=== PATIENT | female | born 2000 | race Caucasian/White ===

== ENCOUNTER 2019-07-02 20:29 | Emergency (ER) | payer OTHER ==
[~2019-07-02] VITALS: Ht 165.1 cm; Wt 72.6 kg
[~2019-07-02 20:29] MED LIST: ADDERALL XR20 MG PO; AMBIEN5 MG PO; AMOXICILLIN500 MG PO; AMOXIL250 M1 PO; BACTRIM DS 8001 TAB PO; BIRTH CONTROL1 EAC1 PO; CEPHALEXIN500 M1 PO; CLARITIN5 MG/5 ML PO; CYCLOBENZAPRINE10 MG PO; Catapres-Tts 10.1 MG PO; IBUPROFEN600 MG PO; KEFLEX500 MG PO; LIDEX0.05% T; MOTRIN100 MG/5 M PO; MOTRIN400 MG PO; MOTRIN600 MG PO; PHENERGAN W/DM120 ML PO; PRELONE5 MG/5 ML PO; REMERON15 MG PO; ROBITUSSIN DM120 ML PO; SUDAFED30 MG PO; TYLENOL W/CODE480 ML PO; VALTREX1 GM PO; VYVANSE50 MG PO; ZITHROMAX Z PA250 MG PO
[2019-07-02 20:36] VITALS: BP 137/80
[2019-07-02 21:46] LABS: BILIRUBIN NEGATIVE (NEGATIVE); BLOOD NEGATIVE (NEGATIVE); CLARITY CLEAR (CLEAR); COLOR YELLOW (YELLOW); GLUCOSE NEGATIVE (NEGATIVE); KETONE NEGATIVE (NEGATIVE); LEUKO ESTERASE NEGATIVE (NEGATIVE); NITRITE NEGATIVE (NEGATIVE); SPECIFIC GRAVITY 1.015 (1.005-1.030); UROBILINOGEN 0.2 E.U./dl (0.2-1.0)
[2019-07-02 21:52] LABS: BACTERIA 1+; EPITHELIAL CELLS TNTC; MUCOUS 1+
[2019-07-02] MEDS ORDERED: MIRALAX119 GM PO (22:37)
[2019-07-02] MEDS ORDERED: AMOXICILLIN500 M2 PO (22:47)
== END 2019-07-02 23:28 | disposition home or self-care (01) ==
LOC: ED 20:29
PROVIDERS: Emergency Medicine Emergency Medical Services
DX: O26.891 Other specified pregnancy related conditions, first trimester (principal); K59.00 Constipation, unspecified; R82.71 Bacteriuria; F32.9 Major depressive disorder, single episode, unspecified; Z3A.01 Less than 8 weeks gestation of pregnancy

== ENCOUNTER 2019-08-03 10:42 | Emergency (ER) | payer OTHER ==
[~2019-08-03] VITALS: Ht 165.1 cm; Wt 72.6 kg
[~2019-08-03 10:42] MED LIST changes: +AMOXICILLIN500 M2 PO; +MIRALAX119 GM PO
[2019-08-03 10:48] VITALS: BP 118/58
[2019-08-03] MEDS ORDERED: AMOXICILLIN500 M3 PO (11:29)
== END 2019-08-03 11:35 | disposition home or self-care (01) ==
LOC: ED 10:42
DX: O99.611 Diseases of the digestive system complicating pregnancy, first trimester (principal); K04.7 Periapical abscess without sinus; Z3A.12 12 weeks gestation of pregnancy

== ENCOUNTER → 2019-08-10 | Outpatient (CLI) | payer OTHER ==
[~2019-08-10] MED LIST changes: +AMOXICILLIN500 M3 PO
== END | disposition home or self-care (01) ==
LOC: US 01:41
DX: Z34.91 Encounter for supervision of normal pregnancy, unspecified, first trimester (principal); Z3A.11 11 weeks gestation of pregnancy

== ENCOUNTER → 2019-10-05 | Outpatient (CLI) | payer OTHER | END | disposition home or self-care (01) | LOC: US 14:00 | DX: Z34.02 Encounter for supervision of normal first pregnancy, second trimester (principal); Z3A.19 19 weeks gestation of pregnancy; D64.9 Anemia, unspecified ==

== ENCOUNTER → 2020-01-02 | Outpatient (CLI) | payer OTHER | END | disposition home or self-care (01) | LOC: US 11:00 | PROVIDERS: ATTEND Nurse Practitioner Women's Health | DX: Z34.03 Encounter for supervision of normal first pregnancy, third trimester (principal); Z3A.32 32 weeks gestation of pregnancy ==

== ENCOUNTER → 2020-02-14 | Outpatient (CLI) | payer OTHER | END | disposition home or self-care (01) | LOC: US 13:34 | PROVIDERS: ATTEND Obstetrics & Gynecology | DX: Z34.03 Encounter for supervision of normal first pregnancy, third trimester (principal); Z3A.38 38 weeks gestation of pregnancy ==

== ENCOUNTER 2020-08-20 01:47 | Emergency (ER) | payer OTHER ==
[~2020-08-20] VITALS: Ht 160 cm; Wt 72.6 kg
[2020-08-20 01:56] VITALS: BP 145/94
[2020-08-20] MEDS ORDERED: ESTARYLLA 0.251 EACH PO (01:56)
[2020-08-20] MEDS ORDERED: NAPROSYN500 MG PO (02:57)
== END 2020-08-20 03:08 | disposition home or self-care (01) ==
LOC: ED 01:47
DX: M94.0 Chondrocostal junction syndrome [Tietze] (principal); Z79.899 Other long term (current) drug therapy

== ENCOUNTER 2020-09-16 00:41 | Emergency (ER) | payer OTHER ==
[~2020-09-16] VITALS: Ht 162.5 cm; Wt 68.0 kg
[~2020-09-16 00:41] MED LIST changes: +ESTARYLLA 0.251 EACH PO; +NAPROSYN500 MG PO
[2020-09-16 01:04] VITALS: BP 104/75
== END 2020-09-16 03:29 | disposition left against medical advice (07) ==
LOC: ED 00:41
DX: Z00.00 Encounter for general adult medical examination without abnormal findings (principal); Z79.899 Other long term (current) drug therapy

== ENCOUNTER → 2020-09-24 | Outpatient (CLI) | payer OTHER ==
[2020-09-24 14:42] LABS: HEMATOCRIT 39.9 % (37.0-47.0); MEAN CELL VOLUME 91.3 fl (81.0-99.0); MEAN CORPUSCULAR HGB 30.2 pg (27.0-31.0); MEAN CORPUSCULAR HGB CONC 33.1 g/dl (33.0-37.0); MEAN PLATELET VOLUME 10.1 fl (9.6-12.3); PLATELET COUNT AUTOMATED 282 10*3/uL (130-400); RED BLOOD COUNT 4.37 10*6/uL (4.10-5.10); RETICULOCYTE % 1.67 % (0.50-2.50); WHITE BLOOD COUNT 6.8 10*3/uL (4.8-10.8)
[2020-09-24 14:48] LABS: BILIRUBIN Negative (Negative); BLOOD 2+ (Negative); CLARITY Clear (Clear); COLOR Yellow (Yellow); GLUCOSE Negative (Negative); KETONE Negative (Negative); LEUKO ESTERASE 2+ (Negative); NITRITE Negative (Negative); SPECIFIC GRAVITY 1.015 (1.001-1.030)
[2020-09-24 15:00] LABS: BACTERIA 3+; EPITHELIAL CELLS 16-20
[2020-09-24 15:14] LABS: ALBUMIN 3.9 gm/dl (3.1-4.5); ALKALINE PHOSPHATASE 42 U/L (45-117); BUN 13 mg/dl (7-24); CHLORIDE 108 mmol/L (98-107); CHOLESTEROL 152 mg/dL (<200); CREATININE 0.81 mg/dL (0.55-1.02); IRON 80 ug/dL (50-170); LDL CHOLESTEROL 81 mg/dL (9-159); POTASSIUM 3.8 mmol/L (3.5-5.1); SGOT/AST 9 IU/L (3-35); SGPT/ALT 21 U/L (12-78); SODIUM 137 mmol/L (136-145); TOTAL IRON BINDING CAPACITY 446 ug/dl (250-450); TOTAL PROTEIN 7.5 gm/dL (6.4-8.2); TRIGLYCERIDES 103 mg/dl (<150); URIC ACID 3.5 mg/dL (2.6-6.0)
[2020-09-24 15:15] LABS: ATYPICAL LYMPHS 1 % (0-0); BASOPHILS 1 % (0-1); PLATELET SUFFICIENCY NORMAL (NORMAL); TOTAL CELLS COUNTED 100 #CELLS
[2020-09-24 15:21] LABS: FERRITIN 16.5 ng/mL (10.0-291.0); VITAMIN D, 25-HYDROXY 21.5 ng/mL (30-100)
[2020-09-24 15:33] LABS: GAMMA GLUTAMYL TRANSPEPTIDASE < 3 U/L (5-55)
[2020-09-25 05:06] LABS: RHEUMATOID ARTHRITIS FACTOR <10.0 IU/mL (0.0-13.9); TOTAL PROTEIN, SERUM 6.9 g/dL (6.0-8.5)
[2020-09-25 16:08] LABS: A/G RATIO 1.6 (0.7-1.7); ALBUMIN 4.2 g/dL (2.9-4.4); ALPHA-1-GLOBULIN 0.2 g/dL (0.0-0.4); ALPHA-2-GLOBULIN 0.7 g/dL (0.4-1.0); ANTI-DSDNA ANTIBODIES 1 IU/mL (0-9); GAMMA GLOBULIN 0.8 g/dL (0.4-1.8); GLOBULIN, TOTAL 2.7 g/dL (2.2-3.9); M-SPIKE Not Observed g/dL (Not Observed)
== END | disposition home or self-care (01) ==
LOC: LAB 14:08
PROVIDERS: ATTEND Family Medicine
DX: E78.5 Hyperlipidemia, unspecified (principal); R53.83 Other fatigue; R79.89 Other specified abnormal findings of blood chemistry; E55.9 Vitamin D deficiency, unspecified

== ENCOUNTER 2020-10-01 20:10 | Emergency (ER) | payer OTHER ==
[~2020-10-01] VITALS: Ht 160 cm; Wt 73.5 kg
[2020-10-01 20:43] VITALS: BP 121/77
[2020-10-01] MEDS ORDERED: AUGMENTIN 875875 MG PO (21:52)
[2020-10-01] MEDS ORDERED: FLONASE ALLERG9.9 ML NAS (21:52)
== END 2020-10-01 22:01 | disposition home or self-care (01) ==
LOC: ED 20:10
DX: J32.9 Chronic sinusitis, unspecified (principal); F17.200 Nicotine dependence, unspecified, uncomplicated; Z79.899 Other long term (current) drug therapy

== ENCOUNTER → 2020-12-14 | Outpatient (CLI) | payer OTHER ==
[~2020-12-14] MED LIST changes: +AUGMENTIN 875875 MG PO; +FLONASE ALLERG9.9 ML NAS
[2020-12-14 10:35] LABS: BASO % 0.7 % (0.0-1.0); EOS # 0.1 10*3/uL (0.0-0.4); EOS % 1.3 % (1.0-4.0); HEMATOCRIT 42.7 % (37.0-47.0); LYMPH # 2.2 10*3/uL (1.3-4.4); LYMPH % 39.6 % (27.0-41.0); MEAN CELL VOLUME 93.8 fl (81.0-99.0); MEAN CORPUSCULAR HGB 30.1 pg (27.0-31.0); MEAN CORPUSCULAR HGB CONC 32.1 g/dl (33.0-37.0); MONO # 0.3 10*3/uL (0.1-1.0); MONO % 5.9 % (3.0-9.0); NEUT # 2.9 10*3/uL (2.3-7.9); NEUT % 52.5 % (47.0-73.0); PLATELET COUNT AUTOMATED 263 10*3/uL (130-400); RED BLOOD COUNT 4.55 10*6/uL (4.10-5.10); RED CELL DISTRI WIDTH 12.1 % (0-14.5); RETICULOCYTE % 1.63 % (0.50-2.50); WHITE BLOOD COUNT 5.5 10*3/uL (4.8-10.8)
[2020-12-14 11:05] LABS: BUN 8 mg/dl (7-24); CHLORIDE 108 mmol/L (98-107); CHOLESTEROL 165 mg/dL (<200); GAMMA GLUTAMYL TRANSPEPTIDASE 9 U/L (5-55); IRON 124 ug/dL (50-170); SODIUM 138 mmol/L (136-145)
[2020-12-14 11:15] LABS: ALKALINE PHOSPHATASE 41 U/L (45-117); LDL CHOLESTEROL 91 mg/dL (9-159); SGOT/AST 13 IU/L (3-35); SGPT/ALT 19 U/L (12-78); TOTAL IRON BINDING CAPACITY 455 ug/dl (250-450); TOTAL PROTEIN 7.9 gm/dL (6.4-8.2); TRIGLYCERIDES 121 mg/dl (<150)
[2020-12-14 11:22] LABS: BETA-HCG, QUANT < 1.0 mIU/mL (1-3)
[2020-12-14 11:36] LABS: BILIRUBIN Negative (Negative); BLOOD Trace-Lysed (Negative); CLARITY Clear (Clear); COLOR Yellow (Yellow); GLUCOSE Negative (Negative); KETONE Negative (Negative); LEUKO ESTERASE Negative (Negative); NITRITE Negative (Negative); UROBILINOGEN 0.2 E.U./dl (0.0-1.0)
[2020-12-14 13:19] LABS: EPITHELIAL CELLS 0-2; RBC 0-2 rbc/hpf (0-2); WBC 0-2 wbc/hpf (0-5)
[2020-12-15 07:06] LABS: H PYLORI IGG AB 0.19 (0.00-0.79)
[2020-12-17 14:07] LABS: H.PYLORI IGM <9.0 units (0.0-8.9)
[2020-12-17 16:07] LABS: H.PYLORI IgA <9.0 units (0.0-8.9)
== END | disposition home or self-care (01) ==
LOC: LAB 09:08 → US 09:08
PROVIDERS: ATTEND Family Medicine
DX: K80.20 Calculus of gallbladder without cholecystitis without obstruction (principal); N83.292 Other ovarian cyst, left side

== ENCOUNTER 2021-01-07 18:13 | Emergency (ER) | payer OTHER ==
[~2021-01-07] VITALS: Ht 157.4 cm; Wt 70.3 kg
[2021-01-07 18:35] VITALS: BP 122/71
[2021-01-07 19:57] LABS: BASO % 0.5 % (0.0-1.0); EOS # 0.1 10*3/uL (0.0-0.4); EOS % 1.5 % (1.0-4.0); HEMATOCRIT 38.7 % (37.0-47.0); LYMPH % 48.9 % (27.0-41.0); MEAN CELL VOLUME 91.7 fl (81.0-99.0); MEAN CORPUSCULAR HGB 29.6 pg (27.0-31.0); MEAN CORPUSCULAR HGB CONC 32.3 g/dl (33.0-37.0); MEAN PLATELET VOLUME 9.6 fl (9.6-12.3); MONO # 0.5 10*3/uL (0.1-1.0); MONO % 7.3 % (3.0-9.0); NEUT # 2.6 10*3/uL (2.3-7.9); NEUT % 41.6 % (47.0-73.0); PLATELET COUNT AUTOMATED 269 10*3/uL (130-400); RED BLOOD COUNT 4.22 10*6/uL (4.10-5.10); RED CELL DISTRI WIDTH 11.9 % (0-14.5); WHITE BLOOD COUNT 6.2 10*3/uL (4.8-10.8)
[2021-01-07 20:14] LABS: BILIRUBIN Negative (Negative); BLOOD 3+ (Negative); CLARITY Clear (Clear); COLOR Yellow (Yellow); GLUCOSE Negative (Negative); KETONE Negative (Negative); LEUKO ESTERASE Negative (Negative); NITRITE Negative (Negative); PH 7.5 (4.5-8.0); SPECIFIC GRAVITY <= 1.005 (1.001-1.030); UROBILINOGEN 0.2 E.U./dl (0.0-1.0)
[2021-01-07 20:17] LABS: ALBUMIN 3.7 gm/dl (3.1-4.5); ALKALINE PHOSPHATASE 40 U/L (45-117); BUN 8 mg/dl (7-24); CHLORIDE 110 mmol/L (98-107); CREATININE 0.74 mg/dL (0.55-1.02); POTASSIUM 3.8 mmol/L (3.5-5.1); SGOT/AST 13 IU/L (3-35); SGPT/ALT 23 U/L (12-78); SODIUM 141 mmol/L (136-145); TOTAL PROTEIN 7.2 gm/dL (6.4-8.2)
[2021-01-07 20:21] LABS: TROPONIN I < 0.015 ng/ml (<0.045)
[2021-01-07 20:34] LABS: RBC 16-20 rbc/hpf (0-2)
[2021-01-07 20:35] LABS: EPITHELIAL CELLS 0-2
== END 2021-01-08 00:45 | disposition home or self-care (01) ==
LOC: ED 18:13
PROVIDERS: Emergency Medicine
DX: I45.6 Pre-excitation syndrome (principal); F17.200 Nicotine dependence, unspecified, uncomplicated; Z79.899 Other long term (current) drug therapy

== ENCOUNTER 2021-01-20 17:40 | Emergency (ER) | payer OTHER ==
[~2021-01-20] VITALS: Ht 157.4 cm; Wt 68.0 kg
[2021-01-20 17:47] VITALS: BP 153/100
[2021-01-20 18:51] LABS: BASO # 0.1 10*3/uL (0.0-0.1); BASO % 0.9 % (0.0-1.0); EOS # 0.1 10*3/uL (0.0-0.4); EOS % 1.1 % (1.0-4.0); HEMATOCRIT 41.9 % (37.0-47.0); LYMPH # 2.2 10*3/uL (1.3-4.4); LYMPH % 33.6 % (27.0-41.0); MEAN CELL VOLUME 89.3 fl (81.0-99.0); MEAN CORPUSCULAR HGB 30.1 pg (27.0-31.0); MEAN CORPUSCULAR HGB CONC 33.7 g/dl (33.0-37.0); MEAN PLATELET VOLUME 10.1 fl (9.6-12.3); MONO # 0.4 10*3/uL (0.1-1.0); MONO % 5.8 % (3.0-9.0); NEUT # 3.8 10*3/uL (2.3-7.9); NEUT % 58.4 % (47.0-73.0); PLATELET COUNT AUTOMATED 271 10*3/uL (130-400); RED BLOOD COUNT 4.69 10*6/uL (4.10-5.10); RED CELL DISTRI WIDTH 11.6 % (0-14.5); WHITE BLOOD COUNT 6.4 10*3/uL (4.8-10.8)
[2021-01-20 19:09] LABS: ALBUMIN 4.1 gm/dl (3.1-4.5); ALKALINE PHOSPHATASE 48 U/L (45-117); BUN 13 mg/dl (7-24); CHLORIDE 109 mmol/L (98-107); CREATININE 0.83 mg/dL (0.55-1.02); POTASSIUM 4.2 mmol/L (3.5-5.1); SGPT/ALT 22 U/L (12-78); SODIUM 139 mmol/L (136-145); TOTAL PROTEIN 7.7 gm/dL (6.4-8.2)
[2021-01-20 19:16] LABS: TROPONIN I < 0.015 ng/ml (<0.045)
[2021-01-20 19:17] LABS: SGOT/AST 21 IU/L (3-35)
== END 2021-01-20 19:46 | disposition home or self-care (01) ==
LOC: ED 17:40
PROVIDERS: Physician Assistant
DX: R00.2 Palpitations (principal)

== ENCOUNTER 2021-03-17 19:01 | Emergency (ER) | payer OTHER ==
[~2021-03-17] VITALS: Ht 157.4 cm; Wt 68.0 kg
[2021-03-17 19:13] VITALS: BP 132/77
== END 2021-03-17 22:41 | disposition left against medical advice (07) ==
LOC: ED 19:01
DX: Z53.21 Procedure and treatment not carried out due to patient leaving prior to being seen by health care provider (principal)

== ENCOUNTER 2021-03-22 01:52 | Emergency (ER) | payer OTHER ==
[~2021-03-22] VITALS: Ht 157.4 cm; Wt 72.6 kg
[2021-03-22 02:00] VITALS: BP 152/84
[2021-03-22 03:37] LABS: BASO % 0.2 % (0.0-1.0); HEMATOCRIT 37.5 % (37.0-47.0); LYMPH # 1.7 10*3/uL (1.3-4.4); LYMPH % 39.5 % (27.0-41.0); MEAN CELL VOLUME 91.5 fl (81.0-99.0); MEAN CORPUSCULAR HGB 30.5 pg (27.0-31.0); MEAN CORPUSCULAR HGB CONC 33.3 g/dl (33.0-37.0); MEAN PLATELET VOLUME 10.1 fl (9.6-12.3); MONO # 0.5 10*3/uL (0.1-1.0); MONO % 11.3 % (3.0-9.0); NEUT # 2.1 10*3/uL (2.3-7.9); PLATELET COUNT AUTOMATED 232 10*3/uL (130-400); WHITE BLOOD COUNT 4.3 10*3/uL (4.8-10.8)
[2021-03-22 03:50] LABS: BUN 15 mg/dl (7-24); CHLORIDE 108 mmol/L (98-107); CREATININE 0.82 mg/dL (0.55-1.02); POTASSIUM 4.3 mmol/L (3.5-5.1); SODIUM 139 mmol/L (136-145)
== END 2021-03-22 05:18 | disposition home or self-care (01) ==
LOC: ED 01:52
PROVIDERS: Emergency Medicine
DX: R07.89 Other chest pain (principal); M79.602 Pain in left arm; Z79.899 Other long term (current) drug therapy; Z79.2 Long term (current) use of antibiotics; Z96.22 Myringotomy tube(s) status

== ENCOUNTER 2021-04-07 16:30 | Emergency (ER) | payer OTHER ==
[~2021-04-07] VITALS: Wt 72.6 kg
[2021-04-07 17:08] LABS: BASO % 0.9 % (0.0-1.0); EOS # 0.1 10*3/uL (0.0-0.4); EOS % 1.4 % (1.0-4.0); HEMATOCRIT 38.9 % (37.0-47.0); LYMPH % 47.2 % (27.0-41.0); MEAN CELL VOLUME 92.2 fl (81.0-99.0); MEAN CORPUSCULAR HGB 30.6 pg (27.0-31.0); MEAN CORPUSCULAR HGB CONC 33.2 g/dl (33.0-37.0); MEAN PLATELET VOLUME 9.6 fl (9.6-12.3); MONO # 0.3 10*3/uL (0.1-1.0); MONO % 6.1 % (3.0-9.0); NEUT # 1.9 10*3/uL (2.3-7.9); NEUT % 44.2 % (47.0-73.0); PLATELET COUNT AUTOMATED 275 10*3/uL (130-400); RED BLOOD COUNT 4.22 10*6/uL (4.10-5.10); WHITE BLOOD COUNT 4.2 10*3/uL (4.8-10.8)
[2021-04-07 17:20] LABS: ACT PARTIAL THROMBO TIME 27.5 SECONDS (20.0-32.1)
[2021-04-07 17:28] LABS: ALBUMIN 3.9 gm/dl (3.1-4.5); ALKALINE PHOSPHATASE 52 U/L (45-117); BUN 13 mg/dl (7-24); CHLORIDE 109 mmol/L (98-107); CREATININE 0.82 mg/dL (0.55-1.02); LIPASE 227 U/L (73-393); SGOT/AST 11 IU/L (3-35); SGPT/ALT 21 U/L (12-78); SODIUM 139 mmol/L (136-145); TOTAL PROTEIN 7.5 gm/dL (6.4-8.2)
[2021-04-07 18:16] LABS: BILIRUBIN Negative (Negative); BLOOD 3+ (Negative); CLARITY Clear (Clear); COLOR Yellow (Yellow); GLUCOSE Negative (Negative); KETONE Negative (Negative); LEUKO ESTERASE 1+ (Negative); NITRITE Negative (Negative); PH 5.5 (4.5-8.0); UROBILINOGEN 0.2 E.U./dl (0.0-1.0)
[2021-04-07 18:48] LABS: BACTERIA TRACE; EPITHELIAL CELLS 16-20; RBC 0-2 rbc/hpf (0-2); YEAST TRACE
[2021-04-07 19:00] VITALS: BP 124/70
[2021-04-07] MEDS ORDERED: IBUPROFEN600 MG PO (20:29)
== END 2021-04-07 20:39 | disposition home or self-care (01) ==
LOC: ED 16:30
PROVIDERS: Physician Assistant
DX: R09.1 Pleurisy (principal); Z79.899 Other long term (current) drug therapy

== ENCOUNTER → 2021-12-12 | Outpatient (CLI) | payer OTHER ==
[2021-12-12 16:28] LABS: BASO # 0.1 10*3/uL (0.0-0.1); BASO % 0.9 % (0.0-1.0); EOS # 0.1 10*3/uL (0.0-0.4); EOS % 1.7 % (1.0-4.0); HEMATOCRIT 37.3 % (37.0-47.0); LYMPH # 2.2 10*3/uL (1.3-4.4); LYMPH % 37.6 % (27.0-41.0); MEAN CORPUSCULAR HGB 31.5 pg (27.0-31.0); MEAN CORPUSCULAR HGB CONC 33.5 g/dl (33.0-37.0); MEAN PLATELET VOLUME 9.5 fl (9.6-12.3); MONO # 0.4 10*3/uL (0.1-1.0); MONO % 6.3 % (3.0-9.0); NEUT # 3.1 10*3/uL (2.3-7.9); NEUT % 53.2 % (47.0-73.0); PLATELET COUNT AUTOMATED 254 10*3/uL (130-400); RED BLOOD COUNT 3.97 10*6/uL (4.10-5.10); RETICULOCYTE % 1.75 % (0.50-2.50); WHITE BLOOD COUNT 5.9 10*3/uL (4.8-10.8)
[2021-12-12 16:29] LABS: BILIRUBIN Negative (Negative); BLOOD Negative (Negative); CLARITY Cloudy (Clear); COLOR Yellow (Yellow); GLUCOSE Negative (Negative); KETONE Negative (Negative); LEUKO ESTERASE Trace (Negative); NITRITE Negative (Negative); PH 6.5 (4.5-8.0); UROBILINOGEN 0.2 E.U./dl (0.0-1.0)
[2021-12-12 16:41] LABS: BACTERIA 1+; MUCOUS 1+; RBC 0-2 rbc/hpf (0-2)
[2021-12-12 17:00] LABS: ALKALINE PHOSPHATASE 48 U/L (45-117); BUN 8 mg/dl (7-24); CHLORIDE 108 mmol/L (98-107); CHOLESTEROL 132 mg/dL (<200); CREATININE 0.64 mg/dL (0.55-1.02); GAMMA GLUTAMYL TRANSPEPTIDASE 10 U/L (5-55); IRON 108 ug/dL (50-170); LDL CHOLESTEROL 65 mg/dL (9-159); POTASSIUM 3.9 mmol/L (3.5-5.1); SGOT/AST 11 IU/L (3-35); SGPT/ALT 19 U/L (12-78); SODIUM 138 mmol/L (136-145); T3 UPTAKE 34 % (31-39); THYROXINE (T4) TOTAL 7.5 ug/dl (4.8-13.9); TOTAL PROTEIN 7.5 gm/dL (6.4-8.2); TRIGLYCERIDES 65 mg/dl (<150); URIC ACID 2.9 mg/dL (2.6-6.0)
[2021-12-12 17:18] LABS: FERRITIN 22.1 ng/mL (10.0-291.0); VITAMIN D, 25-HYDROXY 11.6 ng/mL (30-100)
[2021-12-13 08:08] LABS: RHEUMATOID FACTOR <10.0 IU/mL (<14.0)
[2021-12-13 16:08] LABS: ANTI-DSDNA ANTIBODIES <1 IU/mL (0-9)
== END | disposition home or self-care (01) ==
LOC: LAB 15:55
PROVIDERS: ATTEND Family Medicine
DX: R53.83 Other fatigue (principal); E78.5 Hyperlipidemia, unspecified; R79.89 Other specified abnormal findings of blood chemistry; E55.9 Vitamin D deficiency, unspecified

== ENCOUNTER 2022-01-10 13:26 | Emergency (ER) | payer OTHER ==
[~2022-01-10] VITALS: Ht 160 cm; Wt 74.8 kg
[2022-01-10 13:39] VITALS: BP 133/65
[2022-01-10 16:18] LABS: BASO % 0.4 % (0.0-1.0); EOS % 0.4 % (1.0-4.0); HEMATOCRIT 34.8 % (37.0-47.0); LYMPH % 13.7 % (27.0-41.0); MEAN CELL VOLUME 92.3 fl (81.0-99.0); MEAN CORPUSCULAR HGB 30.8 pg (27.0-31.0); MEAN CORPUSCULAR HGB CONC 33.3 g/dl (33.0-37.0); MEAN PLATELET VOLUME 9.3 fl (9.6-12.3); MONO # 0.4 10*3/uL (0.1-1.0); MONO % 5.5 % (3.0-9.0); NEUT # 5.9 10*3/uL (2.3-7.9); NEUT % 79.9 % (47.0-73.0); PLATELET COUNT AUTOMATED 254 10*3/uL (130-400); RED BLOOD COUNT 3.77 10*6/uL (4.10-5.10); RED CELL DISTRI WIDTH 11.6 % (0-14.5); WHITE BLOOD COUNT 7.4 10*3/uL (4.8-10.8)
[2022-01-10 16:33] LABS: ALKALINE PHOSPHATASE 51 U/L (45-117); BUN 6 mg/dl (7-24); CHLORIDE 107 mmol/L (98-107); CREATININE 0.52 mg/dL (0.55-1.02); POTASSIUM 3.5 mmol/L (3.5-5.1); SGOT/AST 10 IU/L (3-35); SGPT/ALT 16 U/L (12-78); SODIUM 138 mmol/L (136-145); TOTAL PROTEIN 7.4 gm/dL (6.4-8.2)
[2022-01-10 17:10] LABS: BILIRUBIN Negative (Negative); BLOOD Negative (Negative); CLARITY Cloudy (Clear); COLOR Yellow (Yellow); GLUCOSE Negative (Negative); KETONE Trace (Negative); LEUKO ESTERASE 2+ (Negative); NITRITE Negative (Negative); SPECIFIC GRAVITY 1.015 (1.001-1.030); UROBILINOGEN 0.2 E.U./dl (0.0-1.0)
[2022-01-10 17:22] LABS: BACTERIA 2+; EPITHELIAL CELLS TNTC
[2022-01-10] MEDS ORDERED: TYLENOL325 M1 PO (17:35)
[2022-01-10] MEDS ORDERED: CEPHALEXIN500 M1 PO (17:35)
== END 2022-01-10 17:40 | disposition home or self-care (01) ==
LOC: ED 13:26
PROVIDERS: Physician Assistant
DX: O23.91 Unspecified genitourinary tract infection in pregnancy, first trimester (principal); O26.891 Other specified pregnancy related conditions, first trimester; R51.9 Headache, unspecified; Z3A.10 10 weeks gestation of pregnancy; Z79.899 Other long term (current) drug therapy

== ENCOUNTER → 2022-02-07 | Outpatient (CLI) | payer OTHER ==
[~2022-02-07] MED LIST changes: +TYLENOL325 M1 PO
== END ==
LOC: US 10:00
PROVIDERS: ATTEND Obstetrics & Gynecology
DX: Z34.80 Encounter for supervision of other normal pregnancy, unspecified trimester (principal); Z3A.14 14 weeks gestation of pregnancy

== ENCOUNTER → 2022-05-23 | Outpatient (CLI) | payer OTHER ==
[2022-05-23 08:57] LABS: BASO # 0.1 10*3/uL (0.0-0.1); BASO % 0.5 % (0.0-1.0); EOS # 0.1 10*3/uL (0.0-0.4); EOS % 1.3 % (1.0-4.0); HEMATOCRIT 31.2 % (37.0-47.0); LYMPH # 2.7 10*3/uL (1.3-4.4); LYMPH % 29.4 % (27.0-41.0); MEAN CELL VOLUME 91.5 fl (81.0-99.0); MEAN CORPUSCULAR HGB 30.8 pg (27.0-31.0); MEAN CORPUSCULAR HGB CONC 33.7 g/dl (33.0-37.0); MEAN PLATELET VOLUME 9.5 fl (9.6-12.3); MONO # 0.6 10*3/uL (0.1-1.0); MONO % 6.6 % (3.0-9.0); NEUT # 5.7 10*3/uL (2.3-7.9); NEUT % 61.6 % (47.0-73.0); PLATELET COUNT AUTOMATED 236 10*3/uL (130-400); RED BLOOD COUNT 3.41 10*6/uL (4.10-5.10); RED CELL DISTRI WIDTH 12.8 % (0-14.5); WHITE BLOOD COUNT 9.3 10*3/uL (4.8-10.8)
[2022-05-23 09:10] LABS: URINE CREATININE RANDOM 132.14 mg/dL
[2022-05-23 09:11] LABS: ALKALINE PHOSPHATASE 58 U/L (46-116); BUN 6 mg/dl (9-23); CHLORIDE 104 mmol/L (98-107); POTASSIUM 3.8 mmol/L (3.4-5.1); TOTAL PROTEIN 6.3 gm/dL (6.0-8.0); URIC ACID 3.3 mg/dL (3.1-7.8)
[2022-05-23 09:12] LABS: SGPT/ALT < 7 U/L (10-49)
== END | disposition home or self-care (01) ==
LOC: LAB 08:33
PROVIDERS: ATTEND Obstetrics & Gynecology
DX: Z34.83 Encounter for supervision of other normal pregnancy, third trimester (principal); Z3A.28 28 weeks gestation of pregnancy

== ENCOUNTER → 2023-11-24 | Outpatient (CLI) | payer OTHER ==
[2023-11-24 13:45] LABS: BASO # 0.1 10*3/uL (0.0-0.1); BASO % 0.7 % (0.0-1.0); EOS # 0.1 10*3/uL (0.0-0.4); EOS % 0.9 % (1.0-4.0); HEMATOCRIT 40.6 % (37.0-47.0); LYMPH % 28.7 % (27.0-41.0); MEAN CELL VOLUME 92.5 fl (81.0-99.0); MEAN CORPUSCULAR HGB 30.5 pg (27.0-31.0); MEAN PLATELET VOLUME 9.6 fl (9.6-12.3); MONO # 0.5 10*3/uL (0.1-1.0); MONO % 6.4 % (3.0-9.0); NEUT # 4.5 10*3/uL (2.3-7.9); NEUT % 63.2 % (47.0-73.0); PLATELET COUNT AUTOMATED 271 10*3/uL (130-400); RED BLOOD COUNT 4.39 10*6/uL (4.10-5.10); RED CELL DISTRI WIDTH 11.9 % (0-14.5); WHITE BLOOD COUNT 7.1 10*3/uL (4.8-10.8)
[2023-11-24 13:46] LABS: BILIRUBIN Negative (Negative); BLOOD Negative (Negative); CLARITY Clear (Clear); COLOR Yellow (Yellow); GLUCOSE Negative (Negative); KETONE Negative (Negative); LEUKO ESTERASE 2+ (Negative); NITRITE Negative (Negative); UROBILINOGEN 0.2 E.U./dl (0.0-1.0)
[2023-11-24 14:35] LABS: ALKALINE PHOSPHATASE 56 U/L (46-116); BUN 10 mg/dl (9-23); CHLORIDE 106 mmol/L (98-107); CHOLESTEROL 170 mg/dL (<200); GAMMA GLUTAMYL TRANSPEPTIDASE 13 U/L (0-73); LDL CHOLESTEROL 92 mg/dL (9-159); POTASSIUM 4.1 mmol/L (3.4-5.1); SGPT/ALT 15 U/L (5-49); T3 UPTAKE 27.1 % (22.4-36.7); TOTAL PROTEIN 7.8 gm/dL (6.0-8.0); TRIGLYCERIDES 91 mg/dl (<150)
[2023-11-24 14:36] LABS: VITAMIN D, 25-HYDROXY 27.5 ng/mL (30-100)
== END | disposition home or self-care (01) ==
LOC: LAB 13:24
PROVIDERS: ATTEND Family Medicine
DX: R79.89 Other specified abnormal findings of blood chemistry (principal); R53.83 Other fatigue; E78.5 Hyperlipidemia, unspecified; E55.9 Vitamin D deficiency, unspecified

== ENCOUNTER 2024-03-08 19:26 | Emergency (ER) | payer OTHER ==
[~2024-03-08] VITALS: Ht 160 cm; Wt 74.8 kg
[2024-03-08 19:35] VITALS: BP 137/72
[2024-03-08 20:02] LABS: BASO % 0.6 % (0.0-1.0); EOS # 0.1 10*3/uL (0.0-0.4); EOS % 0.8 % (1.0-4.0); HEMATOCRIT 37.8 % (37.0-47.0); MEAN CELL VOLUME 91.5 fl (81.0-99.0); MEAN CORPUSCULAR HGB 30.3 pg (27.0-31.0); MEAN CORPUSCULAR HGB CONC 33.1 g/dl (33.0-37.0); MEAN PLATELET VOLUME 9.7 fl (9.6-12.3); MONO # 0.4 10*3/uL (0.1-1.0); MONO % 5.8 % (3.0-9.0); NEUT # 4.1 10*3/uL (2.3-7.9); NEUT % 56.3 % (47.0-73.0); PLATELET COUNT AUTOMATED 245 10*3/uL (130-400); RED BLOOD COUNT 4.13 10*6/uL (4.10-5.10); RED CELL DISTRI WIDTH 11.9 % (0-14.5); WHITE BLOOD COUNT 7.3 10*3/uL (4.8-10.8)
[2024-03-08 20:07] LABS: BILIRUBIN Negative (Negative); BLOOD Negative (Negative); CLARITY Clear (Clear); COLOR Yellow (Yellow); GLUCOSE Negative (Negative); KETONE Negative (Negative); LEUKO ESTERASE 2+ (Negative); NITRITE Negative (Negative); PH 6.5 (4.5-8.0); SPECIFIC GRAVITY <= 1.005 (1.001-1.030); UROBILINOGEN 0.2 E.U./dl (0.0-1.0)
[2024-03-08 20:16] LABS: BUN 13 mg/dl (9-23); CHLORIDE 109 mmol/L (98-107); POTASSIUM 3.3 mmol/L (3.4-5.1)
[2024-03-08 20:44] LABS: BACTERIA 1+; EPITHELIAL CELLS TNTC
[2024-03-08] MEDS ORDERED: POTASSIUM CHLORIDE 20 MEQ TAB PO ONE (20:50)
[2024-03-08] MEDS ORDERED: Ciprofloxacin Hydrochloride 500 MG TAB PO ONE (20:50)
[2024-03-08] MEDS ORDERED: CIPRO500 MG PO (20:55)
== END 2024-03-08 21:03 | disposition home or self-care (01) ==
LOC: ED 19:26
PROVIDERS: Internal Medicine
DX: E87.6 Hypokalemia (principal); N39.0 Urinary tract infection, site not specified; G20.A1 Parkinson's disease without dyskinesia, without mention of fluctuations; Z79.899 Other long term (current) drug therapy; Z79.2 Long term (current) use of antibiotics

== ENCOUNTER 2024-06-09 19:09 | Emergency (ER) | payer OTHER ==
[~2024-06-09] VITALS: Ht 165.1 cm; Wt 80.5 kg
[~2024-06-09 19:09] MED LIST changes: +CIPRO500 MG PO
[2024-06-09 19:20] VITALS: BP 161/86
[2024-06-09 19:42] LABS: BASO # 0.1 10*3/uL (0.0-0.1); BASO % 0.5 % (0.0-1.0); EOS # 0.1 10*3/uL (0.0-0.4); EOS % 0.5 % (1.0-4.0); HEMATOCRIT 36.3 % (37.0-47.0); MEAN CELL VOLUME 91.7 fl (81.0-99.0); MEAN CORPUSCULAR HGB 29.8 pg (27.0-31.0); MEAN CORPUSCULAR HGB CONC 32.5 g/dl (33.0-37.0); MEAN PLATELET VOLUME 9.5 fl (9.6-12.3); MONO # 0.6 10*3/uL (0.1-1.0); MONO % 5.1 % (3.0-9.0); NEUT # 6.9 10*3/uL (2.3-7.9); NEUT % 62.1 % (47.0-73.0); PLATELET COUNT AUTOMATED 273 10*3/uL (130-400); RED BLOOD COUNT 3.96 10*6/uL (4.10-5.10); RED CELL DISTRI WIDTH 12.2 % (0-14.5)
[2024-06-09 20:02] LABS: BUN 17 mg/dl (9-23); CHLORIDE 107 mmol/L (98-107); POTASSIUM 3.7 mmol/L (3.4-5.1)
== END 2024-06-09 20:06 | disposition home or self-care (01) ==
LOC: ED 19:09
PROVIDERS: Internal Medicine
DX: R00.8 Other abnormalities of heart beat (principal); D64.9 Anemia, unspecified; Z79.899 Other long term (current) drug therapy; Z79.2 Long term (current) use of antibiotics